=== PATIENT | female | born 1980 | race African-American/Black ===

== ENCOUNTER 2018-12-24 11:29 | Emergency (ER) | payer SELFPAY ==
[~2018-12-24] VITALS: Ht 177.8 cm; Wt 170.1 kg
[2018-12-24 11:35] VITALS: BP 178/83
--- NOTE | 2018-12-24 11:52 | PHYS DOC ---
Past History Past Medical History: A-Fib, Asthma, COPD, Hypertension, Other Additional Past Medical Histor: PCOS, Past Surgical History: Tonsillectomy, Tubal ligation Alcohol Use: None Drug Use: None Adult General Chief Complaint Chief Complaint: sore throat, fever HPI HPI 38-year-old female presents via EMS with sore throat and fever. Patient tells me she has had a couple of days. She denies cough. She had a fever yesterday of 103F. she presents today because her throat seems to be getting worse. She does not complain of shortness of breath or chest pain. Patient has a history of asthma as well as A. fib. She tells me that this does not really feel like it's in her chest, but "in my neck and sinuses." She uses albuterol MDI as needed. She has tried using it yesterday and today without significant improvement. Review of Systems Review of Systems Constitutional: The upper[] Eyes: Denies change in visual acuity, redness, or eye pain [] HENT: sore throat [] Respiratory: Denies cough or shortness of breath [] Cardiovascular: No additional information not addressed in HPI [] GI: Denies abdominal pain, nausea, vomiting, bloody stools or diarrhea [] : Denies dysuria or hematuria [] Musculoskeletal: Denies back pain or joint pain [] Integument: Denies rash or skin lesions [] Neurologic: Denies headache, focal weakness or sensory changes [] Endocrine: Denies polyuria or polydipsia [] All other systems were reviewed and found to be within normal limits, except as documented in this note. Physical Exam Physical Exam Constitutional: Well developed, morbidly obesity, well nourished, no acute distress, non-toxic appearance. [] HENT: Normocephalic, atraumatic, bilateral external ears normal, oropharynx is edematous with left-sided tonsillar exudates, nose normal. [] Eyes: PERRLA, EOMI, conjunctiva normal, no discharge. [] Neck: Normal range of motion, no tenderness, supple, no stridor. [] Cardiovascular:Heart rate regular rhythm, no murmur [] Lungs & Thorax: Bilateral breath sounds clear to auscultation [] Abdomen: Bowel sounds normal, soft, no tenderness, no masses, no pulsatile masses. [] Skin: Warm, dry, no erythema, no rash. [] Back: No tenderness, no CVA tenderness. [] Extremities: No tenderness, no cyanosis, no clubbing, ROM intact, no edema. [] Neurologic: Alert and oriented X 3, normal motor function, normal sensory function, no focal deficits noted. [] Psychologic: Affect normal, judgement normal, mood normal. [] Current Patient Data Vital Signs Vital Signs Date Time Temp Pulse Resp B/P (MAP) Pulse Ox O2 Delivery O2 Flow Rate FiO2 12/24/18 11:35 98.8 103 18 96 Room Air EKG EKG [] Radiology/Procedures Radiology/Procedures [] Course & Med Decision Making Course & Med Decision Making Pertinent Labs and Imaging studies reviewed. (See chart for details) The patient's rapid strep was negative. Given her fever, oropharyngeal swelling, and lack of cough, I'm still suspicious for strep. I will treat her with Augmentin for 7 days. She is stable for discharge at this time. [] Dragon Disclaimer Dragon Disclaimer This electronic medical record was generated, in whole or in part, using a voice recognition dictation system. Departure Departure: Impression: Primary Impression: Strep pharyngitis Disposition: HOME, SELF-CARE Condition: STABLE Patient Instructions: Strep Throat, [id number] Scripts Amoxicillin/Potassium Clav (AUGMENTIN 875-125 TABLET) 1 Each Tablet 1 TAB PO BID for strep throat for 7 Days, #14 TAB Prov: CASSANDRA POLO DO 12/24/18 CASSANDRA POLO DO Dec 24, 2018 11:52
[2018-12-24] MEDS ORDERED: AMOX1TAB61 PO (12:26)
== END 2018-12-24 12:35 | disposition home or self-care (01) ==
LOC: ER 11:29
DX: J02.0 Streptococcal pharyngitis (principal); B95.0 Streptococcus, group A, as the cause of diseases classified elsewhere; I48.91 Unspecified atrial fibrillation; J44.9 Chronic obstructive pulmonary disease, unspecified; I10 Essential (primary) hypertension; E28.2 Polycystic ovarian syndrome; Z90.89 Acquired absence of other organs
CPT/HCPCS: 87070; 87880; 99283